=== PATIENT | male | born 1945 | race Caucasian/White ===

== ENCOUNTER 2017-12-22 09:37 | Inpatient (IN) | payer MEDICARE, BC ==
[2017-12-22 10:05] LABS: #Basophils 0.1 thou/uL (0.0-0.2); #Eosinphils 0.1 thou/uL (0.0-0.7); #Lymphocytes 1.6 thou/uL (1.20-3.40); #Monocytes 0.8 thou/uL (0.11-0.59); #Neutrophils 7.8 thou/uL (1.40-6.50); %Basophils 1.1 % (0.0-1.0); %Eosinophils 1.1 % (0.0-10.0); %Lymphocytes 15.5 % (21.0-51.0); %Monocytes 7.9 % (0.0-10.0); %Neutrophils 74.5 % (42.0-75.0); Hemoglobin 17.1 g/dL (14.0-18.0); Mean Corpuscular HGB CONC 33.8 g/dL (32.0-36.0); Mean Corpuscular Hemoglobin 31.2 pg (27.0-31.0); Mean Corpuscular Volume 92.3 fL (78.0-98.0); Mean Platelet Volume 9.5 fL (7.4-10.4); Platelet Count 257 thou/uL (130-400); RBC Distribution Width 12.2 % (11.5-14.5); Red Blood Cell (RBC) Count 5.48 mill/uL (4.70-6.10); White Blood Cell (WBC) Count 10.5 thou/uL (4.8-10.8)
--- NOTE | 2017-12-22 10:16 | RAD ---
1 VIEW CHEST: Date: 12/22/17 HISTORY: Chest tightness. Nausea. Pain. COMPARISON: 11/07/16. FINDINGS: Portable upright chest demonstrates normal cardiac silhouette. Pulmonary vessels and hilum are normal . No consolidation or mass. No pneumothorax or osseous abnormalities. IMPRESSION: No acute cardiopulmonary process. POS: [facility]
[2017-12-22] MEDS ORDERED: Nitroglycerin 0.4 MG TAB (25 Tab Bottle) ONE (10:20)
[2017-12-22 10:21] LABS: ALT (SGPT) 27 U/L (8-55); AST (SGOT) 22 U/L (5-34); Albumin 4.6 g/dL (3.4-4.8); Alkaline Phosphatase 78 U/L (40-150); Anion Gap 14 mmol/L (10-20); BUN (Urea Nitrogen) 17 mg/dL (8.4-25.7); Bilirubin, Total 1.1 mg/dL (0.2-1.2); Calc. Creatinine Clearance 0 mL/min (70-130); Carbon Dioxide 23 mmol/L (23-31); Chloride 104 mmol/L (98-107); Estimated GFR-MDRD 66; Globulin 3.1 g/dL (2.4-3.5); Glucose 123 mg/dL (83-110); Potassium 4.2 mmol/L (3.5-5.1); Protein, Total 7.7 g/dL (5.8-8.1); Sodium 137 mmol/L (136-145)
[2017-12-22 10:23] LABS: CKMB 0.7 ng/mL (0-6.6)
[2017-12-22 10:35] LABS: Troponin I Less than 0.010 ng/mL (< 0.028)
[2017-12-22] MEDS ORDERED: Nitroglycerin 0.4 MG TAB (25 Tab Bottle) PO PRN (11:36)
[2017-12-22] MEDS ORDERED: Acetaminophen 650 MG Suppository PR PRN (11:36)
[2017-12-22] MEDS ORDERED: Bisacodyl 5 MG TAB PO PRN (11:36)
[2017-12-22] MEDS ORDERED: Acetaminophen 325 MG TAB PO PRN (11:36)
--- NOTE | 2017-12-22 12:40 | HP ---
DATE OF ADMISSION: 12/12/2017 PRIMARY CARE PROVIDER: Briana Sullivan M.D. CHIEF COMPLAINT: Chest discomfort. HISTORY OF PRESENT ILLNESS: Mr. Ackerman is a pleasant 72-year-old gentleman who was seen at [facility] on 12/22/2017. His cardiac history includes cardiac catheterization in , which showed mild nonobstructive atherosclerotic heart disease. He subsequently had a nuclear stress test in 11/2016, which was normal. He was reportedly doing well until today morning. He woke up around 6:00 a.m. to go to the bathroom. At that time, he had chest tightness. He describes it as being in the retrosternal region, nonradi ating, accompanied by shortness of breath and diaphoresis. It was not accompanied by lightheadedness . He cannot recall any aggravating or relieving factors. He rates it as 3-4/10. The chest pain jeevan ntually resolved, but recurred again. That is why he came to the emergency room. REVIEW OF SYSTEMS: All other systems reviewed and found to be negative. PAST MEDICAL HISTORY: Hypertension, dyslipidemia, macular degeneration and coronary artery disease. PAST SURGICAL HISTORY: Skin cancer surgery. SOCIAL HISTORY: The patient denies tobacco use, alcohol use or recreational drug use. FAMILY HISTORY: Significant for heart valve problems in his father. CODE STATUS: I discussed his code status. He is full code. ALLERGIES: No known drug allergies. CURRENT MEDICATIONS: Amlodipine 10 mg daily, isosorbide dinitrate 30 mg daily, atorvastatin 40 mg da nyasia, losartan/hydrochlorothiazide 100/12.5 mg daily. PHYSICAL EXAMINATION: GENERAL: On examination, Mr. Ackerman is awake and alert, not in acute distress. VITAL SIGNS: Blood pressure is 162/97, pulse 97, respiratory rate 20 and oxygen saturation 94% on ro om air. He is afebrile. EYES: No scleral icterus. No conjunctival pallor. ENT: Moist mucosal membranes. No oropharyngeal erythema or exudates. NECK: Supple, nontender, trachea is midline. RESPIRATORY: Accessory muscles of breathing are not active. Chest wall movements are symmetric bila terally. LUNGS: Clear to auscultation without wheeze, rhonchi or crepitations. CARDIOVASCULAR: S1 and S2 are heard, regular. Peripheral pulses palpable. No carotid bruit, no per icardial rub. ABDOMEN: Soft, nontender, bowel sounds heard, no hepatomegaly, no splenomegaly. NEUROLOGIC: Cranial nerves II-XII intact. Deep tendon reflexes are 2+. MUSCULOSKELETAL: Power is 5/5 in all 4 extremities. SKIN: Vitiligo patches over both hands. LYMPHATIC: No cervical lymphadenopathy. PSYCHIATRIC: Normal mood, normal affect. The patient is oriented to person, place and time. LABORATORY DATA: Mr. Ackerman' labs and investigations were reviewed. I reviewed his electrocardiog denise, which shows normal sinus rhythm. No ST changes to suggest an acute coronary syndrome. I also r eviewed his chest x-ray, which does not show any pulmonary infiltrates. He has an unremarkable CBC, unremarkable comprehensive metabolic profile, normal BNP and normal troponin I. ASSESSMENT AND PLAN: Mr. Ackerman is a pleasant 72-year-old gentleman who was seen at [facility] on 12/22/2017. His problem list includes: 1. Chest pain: Etiology unclear. Given his significant risk factors, the patient will be admitted to the hospital on monitoring analyst. We will order a stress test. Further management depending on outcome of the test. 2. Hypertension: Resume the patient's home medications, monitor vital signs and titrate antihyperte nsives as needed. 3. Dyslipidemia: Continue statin. 4. Macular degeneration: The patient has no vision complaints at this time. Many thanks for allowing me to participate in your patient's care. Please feel free to contact me wi th any questions or concerns. LEVEL OF RISK: High. LEVEL OF COMPLEXITY: High.
[2017-12-22 13:40] VITALS: BMI 25.6
[2017-12-22 13:42] LABS: Troponin I Less than 0.010 ng/mL (< 0.028)
[2017-12-22 16:24] LABS: Troponin I Less than 0.010 ng/mL (< 0.028)
[2017-12-22] MEDS ORDERED: Prevnar 13-Val Conj/PF 0.5 ML SYRINGE IM ONE (21:00)
[2017-12-23 04:02] LABS: #Basophils 0.1 thou/uL (0.0-0.2); #Eosinphils 0.2 thou/uL (0.0-0.7); #Lymphocytes 1.4 thou/uL (1.20-3.40); #Monocytes 0.7 thou/uL (0.11-0.59); #Neutrophils 5.5 thou/uL (1.40-6.50); %Basophils 0.6 % (0.0-1.0); %Eosinophils 2.2 % (0.0-10.0); %Lymphocytes 18.3 % (21.0-51.0); %Monocytes 9.1 % (0.0-10.0); %Neutrophils 69.8 % (42.0-75.0); Mean Corpuscular HGB CONC 34.5 g/dL (32.0-36.0); Mean Corpuscular Hemoglobin 31.8 pg (27.0-31.0); Mean Corpuscular Volume 92.1 fL (78.0-98.0); Mean Platelet Volume 9.3 fL (7.4-10.4); Platelet Count 211 thou/uL (130-400); RBC Distribution Width 12.1 % (11.5-14.5); Red Blood Cell (RBC) Count 4.72 mill/uL (4.70-6.10); White Blood Cell (WBC) Count 7.9 thou/uL (4.8-10.8)
[2017-12-23 04:29] LABS: Anion Gap 13 mmol/L (10-20); BUN (Urea Nitrogen) 16 mg/dL (8.4-25.7); Calc. Creatinine Clearance 80 mL/min (70-130); Calcium 8.4 mg/dL (7.8-10.44); Carbon Dioxide 23 mmol/L (23-31); Chloride 108 mmol/L (98-107); Estimated GFR-MDRD 78; Glucose 97 mg/dL (83-110); Potassium 3.9 mmol/L (3.5-5.1); Sodium 140 mmol/L (136-145)
[2017-12-23] MEDS: Atorvastatin Calcium 40 MG TAB PO SCH (08:19)
[2017-12-23] MEDS: Losartan 25 MG TAB PO SCH (08:19)
[2017-12-23] MEDS: Amlodipine 10 MG TAB PO SCH (08:19)
[2017-12-23] MEDS ORDERED: Enoxaparin Sodium 40 MG/0.4 ML SYRINGE SC SCH (09:00)
[2017-12-23] MEDS ORDERED: Aspirin 325 MG TAB PO SCH (09:00)
[2017-12-23] MEDS ORDERED: Hydrochlorothiazide 25 MG TAB PO SCH (09:00)
[2017-12-23] MEDS ORDERED: Non-Formulary Item 1 EACH (Losartan/Hydrochlorothiazide [Losartan-Hctz 100-12.5 Mg Tab] 1 PO SCH (09:00)
--- NOTE | 2017-12-23 14:36 | NM ---
MYOCARDIAL PERFUSION SCAN: DATE: 12/23/17. PROVIDED CLINICAL HISTORY: Chest pain. RADIOPHARMACEUTICAL: 28 mCi Technetium 99m labeled sestamibi IV stress. 10 mCi Technetium 99m labeled sestamibi IV rest. FINDINGS: There is moderate area of prominently reduced radiotracer activity involving the basal to mid inferio r wall at stress. This demonstrates reversibility on the rest images. There is otherwise normal, ho mogeneous distribution of the radiotracer throughout the left ventricular myocardium at stress and re st. Gated data demonstrate normal myocardial wall motion and thickening with calculated LEVF of 73%. TID is 0.92 IMPRESSION: 1. Reversibility involving the basal and mid to inferior wall compatible with ischemia. 2. Preserved left ventricular ejection fraction. POS: [facility]
--- NOTE | 2017-12-23 16:17 | PDOC.PN ---
- Subjective Encounter Start Date: 12/23/17 Encounter Start Time: 16:16 Pt seen for followup re: chest pain. Denies chest pain, shortness of breath, fevers or chills. - Objective Resuscitation Status: Resuscitation Status FULL:Full Resuscitation MAR Reviewed: Yes Vital Signs & Weight: Vital Signs (12 hours) Temp Pulse Resp BP Pulse Ox 12/23/17 15:56 97.5 F L 98 18 170/81 H 94 L 12/23/17 12:34 97.9 F 98 20 138/75 94 L 12/23/17 07:29 98 F 75 17 138/71 95 Weight Weight 174 lb 3.2 oz I&O: 12/22/17 12/23/17 12/24/17 06:59 06:59 06:59 Intake Total 650 Output Total 925 Balance -275 Result Diagrams: 12/23/17 03:40 12/23/17 03:40 EKG Reviewed by me: Yes (Tele: NSR) Phys Exam - Physical Examination Constitutional: NAD HEENT: moist MMs, sclera anicteric, oral pharynx no lesions, 2+ tonsils Neck: no nodes, no JVD, supple, full ROM Respiratory: no wheezing, no rales, no rhonchi, clear to auscultation bilateral Cardiovascular: RRR, no rub S1, S2 Gastrointestinal: soft, non-tender, no distention, positive bowel sounds Neurological: moves all 4 limbs Psychiatric: normal affect, A&O x 3 Dx/Plan (1) Chest pain Code(s): R07.9 - CHEST PAIN, UNSPECIFIED Status: Acute Comment: abnormal stress test, monitor on telemetry. (2) Hypertension Code(s): I10 - ESSENTIAL (PRIMARY) HYPERTENSION Status: Chronic Comment: Monitor vital signs, titrate antihypertensives as needed (3) Dyslipidemia Code(s): E78.5 - HYPERLIPIDEMIA, UNSPECIFIED Status: Chronic Comment: continue statin (4) Macular degeneration Code(s): H35.30 - UNSPECIFIED MACULAR DEGENERATION Status: Chronic Comment: stable - Plan * . Review of Systems - Review of Systems Constitutional: negative: fever, chills, sweats, weakness, malaise Respiratory: negative: Cough, Shortness of Breath, SOB with Excertion, Pleuritic Pain, Wheezing Cardiovascular: negative: chest pain, palpitations, orthopnea, paroxysmal nocturnal dyspnea, edema, light headedness Gastrointestinal: negative: Nausea, Vomiting, Abdominal Pain, Diarrhea, Constipation, Melena, Hematochezia Genitourinary: negative: Dysuria, Frequency, Incontinence, Hematuria, Retention Skin: negative: Rash, Lesions, Ja, Bruising - Medications/Allergies Allergies/Adverse Reactions: Allergies Allergy/AdvReac Type Severity Reaction Status Date / Time No Known Drug Allergies Allergy Verified 03/22/15 17:00 Medications: Current Medications Acetaminophen (Tylenol) 650 mg PO Q4H PRN PRN Reason: Headache/Fever or Pain Acetaminophen (Tylenol) 650 mg MN Q4H PRN PRN Reason: Headache/Fever or Pain Amlodipine Besylate (Norvasc) 10 mg PO DAILY [facility] Last Admin: 12/23/17 08:19 Dose: 10 mg Aspirin (Aspirin) 325 mg PO DAILY [facility] Last Admin: 12/23/17 08:19 Dose: 325 mg Atorvastatin Calcium (Lipitor) 40 mg PO DAILY [facility] Last Admin: 12/23/17 08:19 Dose: 40 mg Bisacodyl (Dulcolax) 10 mg PO DAILYPRN PRN PRN Reason: Constipation Enoxaparin Sodium (Lovenox) 40 mg SC 0900 [facility] Last Admin: 12/23/17 08:20 Dose: 40 mg Hydrochlorothiazide (Hydrochlorothiazide) 12.5 mg PO DAILY [facility] Last Admin: 12/23/17 08:18 Dose: 12.5 mg Losartan Potassium (Cozaar) 100 mg PO DAILY [facility] Last Admin: 12/23/17 08:19 Dose: 100 mg Nitroglycerin (Nitrostat) 0.4 mg PO Q5MIN PRN PRN Reason: Chest Pain
[2017-12-23] MEDS ORDERED: Clopidogrel Bisulfate 300 MG TAB PO SCH (17:00)
[2017-12-23] MEDS ORDERED: Communication Order-Pharmacy FS SCH (17:00)
[2017-12-24] MEDS: Amlodipine 10 MG TAB PO SCH (05:54)
[2017-12-24] MEDS: Atorvastatin Calcium 40 MG TAB PO SCH (05:54)
--- NOTE | 2017-12-24 07:40 | CON ---
DATE OF CONSULTATION: 12/23/2017 HISTORY OF PRESENT ILLNESS: The patient is a 72-year-old gentleman who presents with recurrent chest discomfort. The patient was seen in 03/2015 with chest pain. He underwent a cardiac catheterization. He was found to have mild coronary artery disease and placed on medical therapy. He was readmitted in November of 2016, he underwent a cardiac evaluation including a Cardiolite stress test which revealed no evidence of ischemia. The patient represented yesterday with substernal chest discomfort. He was recently taken off Plavix and had adjustment of his cardiac medications. He presented with midsternal chest pain that was associated with diaphoresis and discomfort radiating into both arms. The patient came to the emergency room for further evaluation. The patient denies having present chest discomfort. PAST MEDICAL HISTORY: 1. Coronary artery disease. 2. Hypertension. 3. Dyslipidemia. PAST SURGICAL: Skin cancer surgery. SOCIAL HISTORY: Nonsmoker. FAMILY HISTORY: Positive family history of coronary artery disease. ALLERGIES: None. MEDICATION ON ADMISSION: Isosorbide dinitrate 30 daily, Lipitor 40 at bedtime, Norvasc 10 daily, losartan/HCTZ 112.5 daily. REVIEW OF SYSTEMS Ten-point system otherwise unremarkable. No history of easy bruising or bleeding. PHYSICAL EXAMINATION: GENERAL: This is an elderly gentleman in no acute distress. VITAL SIGNS: Blood pressure is 170/81. NECK: No jugular distention, no carotid bruits. LUNGS: Clear to auscultation. HEART: Regular rate and rhythm, normal S1, S2. ABDOMEN: Distended. EXTREMITIES: Showed no edema. SKIN: Warm and dry. NEUROLOGIC: Nonfocal. VASCULAR: Radial pulses 2+. LABORATORY: White blood count 7.9, hemoglobin 15.0, hematocrit 43.5, platelets 211. Sodium was 140, potassium 3.9, chloride 108, bicarbonate 23, BUN 16, creatinine 0.95. Troponin less than 0.01. BNP 50.9. EKG revealed normal sinus rhythm with a nonspecific ST abnormality. Cardiolite stress test revealed normal left ventricular ejection fraction of 73%. There was ischemia of the inferior wall. IMPRESSION: 1. Unstable angina. 2. History of mild coronary artery disease. 3. Dyslipidemia. 4. Hypertension. This gentleman presents with unstable angina. There was evidence of ischemia on a stress test. We will restart the patient on Plavix. We will also add nitrate therapy. We will also place the patient back on Imdur. Further recommendations will follow. MTDD
[2017-12-24] MEDS ORDERED: Diazepam 5 MG TAB PO SCH (08:15)
[2017-12-24] MEDS ORDERED: Sodium Chloride 0.9% 1,000 ML IV SCH (08:15)
[2017-12-24] MEDS ORDERED: Iopamidol 370 76% 100 ML VIAL ONE (08:25)
--- NOTE | 2017-12-24 08:29 | PRG ---
DATE OF SERVICE: 12/24/2017 Mr. Ackerman is doing well today. He has no chest pain or pressure now. I have reviewed the situation. The patient did have an episod e of what sounds like anginal chest pain, relieved with nitroglycerin on 12/22/2017. He did undergo cardiac catheterization in 2014, which showed no obstructive stenosis. The stress test was interpret ed as some inferior ischemia. I discussed the options based on the abnormal stress test, reasonable to proceed to repeat cardiac ca theterization. The troponin levels, however, have all been normal and the EKGs have all been normal. I discussed risk of catheterization, stroke, heart attack, iodine allergy, loss of blood supply to leg or kidney, stent thrombosis, stent restenosis. He understands and wishes to proceed.
[2017-12-24] MEDS: Losartan 25 MG TAB PO SCH (08:38)
[2017-12-24] MEDS ORDERED: Clopidogrel Bisulfate 75 MG TAB PO SCH (09:00)
[2017-12-24] MEDS ORDERED: Heparin 0 ML ONE (10:12)
[2017-12-24] MEDS ORDERED: Lidocaine 1% (PF) 30 ML VIAL ONE ×2 (10:12→11:30)
[2017-12-24] MEDS ORDERED: Fentanyl 100 MCG/2 ML VIAL ONE (12:03)
[2017-12-24] MEDS ORDERED: Midazolam HCl 2 mg/2 ml Vial ONE (12:03)
[2017-12-24] MEDS ORDERED: Nitroglycerin 100MG/250ML BOT 0 ML ONE (12:07)
[2017-12-24] MEDS ORDERED: Nitroglycerin 4.9 GM Bottle ONE (12:07)
[2017-12-24] MEDS ORDERED: traMADol HCl 50 MG TAB PO PRN (12:42)
[2017-12-24] MEDS ORDERED: Nitroglycerin 0.4 MG TAB (25 Tab Bottle) SL PRN (12:42)
[2017-12-24] MEDS ORDERED: Acetaminophen/Codeine 30-300mg Tablet PO PRN ×2 (12:42)
[2017-12-24] MEDS ORDERED: Sodium Chloride 0.9% 200 ML IV PRN (12:45)
[2017-12-24] MEDS ORDERED: Nitroglycerin 4.9 GM Bottle SL PRN (13:10)
[2017-12-24 15:55] VITALS: BP 123/66; TEMP 97.8
--- NOTE | 2017-12-25 02:12 | DIS ---
DATE OF ADMISSION: 12/22/2017 DATE OF DISCHARGE: 12/24/2017 PRIMARY CARE PHYSICIAN: Briana Sullivan MD DISCHARGE DIAGNOSES: 1. Chest pain. 2. Probable angina. 3. Abnormal stress test. CONDITION OF PATIENT ON THE DAY OF DISCHARGE: Stable. I assessed Mr. Ackerman on the day of dischar . He denies any chest pain or shortness of breath at this time. Vital signs are stable. S1 and S 2 are heard, regular. Lungs are clear to auscultation bilaterally. DISCHARGE MEDICATIONS: In addition to the home medications as dictated on my history and physical no te dated 12/22/2017, he is being discharged on aspirin 81 mg daily, Plavix 75 mg daily, and nitroglyc jose angel spray p.r.n. CONSULTATIONS DURING THIS HOSPITALIZATION: Cardiology, Dr. Montesinos. HOSPITAL COURSE: Mr. Ackerman is a pleasant 72-year-old gentleman who was admitted to [facility] on 12/22/2017 for chest pain. Please refer to my history and physical note dated 12/22/2017 for further details. He underwent nuclear stress test, which showed reversibility involv ing the basal and [id number] wall compatible with ischemia. He was seen by Cardiology Service. He went on to have cardiac catheterization on 12/24/2017, which did not show any flow-limiting coron cory artery disease. Left ventricular ejection fraction was 60%. He had normal wall motion. LAD foreign dge noted, not hemodynamically significant, 30% ramus block, and 10% RCA. Cardiology service recomme nds medical therapy. He is being discharged home in a stable condition. Many thanks for allowing me to participate in the patient's care. Please feel free to contact me wit h any questions or concerns. DISCHARGE DESTINATION: Home. TOTAL AMOUNT OF TIME SPENT COORDINATING THIS DISCHARGE: 31 minutes.
[2017-12-25] MEDS ORDERED: Hydrochlorothiazide 25 MG TAB PO SCH (09:00)
--- NOTE | 2017-12-29 11:18 | EKG ---
Test Reason : CHEST TIGHTNESS Blood Pressure : / mmHG Vent. Rate : 092 BPM Atrial Rate : 092 BPM P-R Int : 150 ms QRS Dur : 086 ms QT Int : 366 ms P-R-T Axes : 066 050 078 degrees QTc Int : 452 ms Normal sinus rhythm Possible Left atrial enlargement Nonspecific ST and T wave abnormality Abnormal ECG Confirmed by ZABRINA NORTON M.D. ([id number]), newspaper copy editor LARRY COLUNGA ([id number]) on 12/29/2017 11:18:20 AM Referred By: Confirmed By:ZABRINA NORTON M.D.
== END 2017-12-24 18:09 | disposition home or self-care (01) | DRG 303 ==
LOC: ERS 09:37 → 2SW 11:07 → OBSVTOIN 12-23 17:03
PROVIDERS: ADMIT Internal Medicine; ATTEND Internal Medicine
DX: I25.110 Atherosclerotic heart disease of native coronary artery with unstable angina pectoris (principal); I10 Essential (primary) hypertension; E78.5 Hyperlipidemia, unspecified; Z85.828 Personal history of other malignant neoplasm of skin; H35.30 Unspecified macular degeneration
CPT/HCPCS: 36415; 71045; 76942; 78452; 80048; 80053; 82553; 83880; 84484; 85025; 93005; 93017; 93458; 94760; 96360; 99152; A9500; C1769; J1644; J1650; J2001; J2250; J3010

== ENCOUNTER 2018-08-13 15:18 | Outpatient (CLI) | payer MEDICARE, BC ==
--- NOTE | 2018-08-13 15:27 | RAD ---
XR Chest Pa Lat @ [facility] HISTORY: Dyspnea COMPARISON: 10/23/2017 study. FINDINGS: Heart size and mediastinum are within normal limits. The lungs are clear of infiltrates. No significant bony findings. IMPRESSION: No active intrathoracic disease.
== END 2018-08-13 15:19 | disposition home or self-care (01) ==
LOC: RAD 15:18
PROVIDERS: ATTEND Internal Medicine Pulmonary Disease
DX: R06.00 Dyspnea, unspecified (principal)
CPT/HCPCS: 71046

== ENCOUNTER 2020-01-27 08:49 | Outpatient (CLI) | payer MEDICARE, BC ==
[2020-01-27] MEDS ORDERED: Magnevist 469MG/ML 20 ML VIAL ONE (09:08)
--- NOTE | 2020-01-27 11:41 | MRI ---
EXAM: MRI of the pelvis/prostate without and with contrast HISTORY: elevated PSA COMPARISON: None TECHNIQUE: Multiplanar multisequence MR images were obtained of the pelvis without and with IV contra st. Evaluation of this exam was performed with a [employer] workstation. FINDINGS: Central gland: Moderate hypertrophy of the central gland consistent with BPH. Prostate volume is matias mated at 37 mL. No suspicious low T2 signal lesion is seen. Peripheral zone: No restricted diffusion is seen. No low signal on ADC map. Seminal vesicles: Intact without abnormality Neurovascular bundles: Intact Pelvic lymph nodes: No pelvic adenopathy Other visualized intrapelvic structures: Unremarkable Osseous structures: No marrow signal abnormality IMPRESSION: PI-RADS Category 2-low likelihood that a clinically significant cancer is present.
== END 2020-01-27 08:50 | disposition home or self-care (01) ==
LOC: TBSIIMAG 08:49
PROVIDERS: ATTEND Urology
DX: R97.20 Elevated prostate specific antigen [PSA] (principal)
CPT/HCPCS: 72197; 82565; A9579

== ENCOUNTER 2020-03-08 18:04 | Emergency (ER) | payer MEDICARE, BC ==
[2020-03-08] MEDS ORDERED: Boostrix 0.5 ML (Tdap) VIAL ONE (18:22)
== END 2020-03-08 19:00 | disposition home or self-care (01) ==
LOC: ERS 18:04
DX: S41.111A Laceration without foreign body of right upper arm, initial encounter (principal); I10 Essential (primary) hypertension; E78.00 Pure hypercholesterolemia, unspecified; Z79.899 Other long term (current) drug therapy; Z79.82 Long term (current) use of aspirin; F17.220 Nicotine dependence, chewing tobacco, uncomplicated; W26.9XXA Contact with unspecified sharp object(s), initial encounter
CPT/HCPCS: 90471; 90715

== ENCOUNTER 2025-02-09 08:17 | Inpatient (IN) | payer MEDICARE, BC ==
[2025-02-09 09:00] VITALS: BMI 25.8
[2025-02-09 10:40] LABS: #Basophils 0.03 10x3/uL (0.0-0.2); #Eosinophils 0.14 10x3/uL (0.0-0.7); #Monocytes 0.85 10x3/uL (0.11-0.59); #Neutrophils 5.66 10x3/uL (1.40-6.50); %Basophils 0.4 % (0.0-1.0); %Eosinophils 1.7 % (0.0-10.0); %Lymphocytes 20.5 % (21.0-51.0); %Monocytes 10.1 % (0.0-10.0); %Neutrophils 66.9 % (42.0-75.0); Hematocrit 45.5 % (42.0-52.0); Hemoglobin 14.5 g/dL (14.0-18.0); Mean Corpuscular Hemoglobin 26.8 pg (27.0-31.0); Mean Corpuscular Volume 84.1 fL (78.0-98.0); Platelet Count 238 10x3/uL (130-400); Red Blood Cell (RBC) Count 5.41 mill/uL (4.70-6.10); White Blood Cell (WBC) Count 8.44 10x3/uL (4.8-10.8)
[2025-02-09 10:54] LABS: INR-International Normal Ratio 2.7; Prothrombin Time 29.1 sec (12.0-14.7)
[2025-02-09 10:55] LABS: PTT 37.1 sec (22.9-36.1)
[2025-02-09 11:02] LABS: ALT (SGPT) 30 U/L (Less than 45); AST (SGOT) 36 U/L (11-34); Albumin 4.5 g/dL (3.1-4.5); Alkaline Phosphatase 69 U/L (40-110); Anion Gap 14 mmol/L (10-20); BUN (Urea Nitrogen) 16 mg/dL (8.4-25.7); Bilirubin, Total 0.7 mg/dL (0.3-1.2); Calc. Creatinine Clearance 0 mL/min (70-130); Calcium 9.0 mg/dL (7.8-10.44); Carbon Dioxide 27 mmol/L (23-31); Chloride 105 mmol/L (98-107); Globulin 2.8 g/dL (2.4-3.5); Glucose 112 mg/dL (83-110); Potassium 4.4 mmol/L (3.5-5.1); Sodium 142 mmol/L (136-145)
[2025-02-11] MEDS ORDERED: CEFAZOLIN 2 GM VIAL ONE (06:39)
[2025-02-11] MEDS ORDERED: Heparin 10,000 UNITS/ 10 ML VIAL ONE (06:39)
[2025-02-11] MEDS ORDERED: Ondansetron PF 4 MG/2 ML Vial ONE (07:21)
[2025-02-11] MEDS ORDERED: Glycopyrrolate 0.2 MG/ML 5 ML SYRINGE ONE (07:22)
[2025-02-11] MEDS ORDERED: Rocuronium Bromide 10 MG/ML (10ML VIAL) ONE (07:22)
[2025-02-11] MEDS ORDERED: PHENYLEPHRINE-NS 100 MCG/ML 10 ML SYRINGE ONE (07:22)
[2025-02-11] MEDS ORDERED: Lidocaine 1% (PF) 30 ML VIAL ONE (07:22)
[2025-02-11] MEDS ORDERED: PROPOFOL 200 MG/20 ML VIAL ONE (07:40)
[2025-02-11] MEDS ORDERED: SUGAMMADEX SODIUM 200 MG/2 ML VIAL ONE (08:00)
[2025-02-11] MEDS ORDERED: Iopamidol 370 76% 100 ML VIAL ONE (09:16)
== END 2025-02-11 14:25 | disposition home or self-care (01) | DRG 274 ==
LOC: SURG A 08:17 → UNDOADMIN 08:17 → SURG A 02-11 06:20
PROVIDERS: ADMIT Internal Medicine Cardiovascular Disease; ATTEND Internal Medicine Cardiovascular Disease
PROC: 02L73DK Occlusion of Left Atrial Appendage with Intraluminal Device, Percutaneous Approach (ICD-10-PCS; principal; 2025-02-11)
PROC: 3E03329 Introduction of Other Anti-infective into Peripheral Vein, Percutaneous Approach (ICD-10-PCS; 2025-02-11)
DX: I48.0 Paroxysmal atrial fibrillation (principal); Z00.6 Encounter for examination for normal comparison and control in clinical research program; I10 Essential (primary) hypertension; E78.5 Hyperlipidemia, unspecified; Z87.891 Personal history of nicotine dependence; Z79.01 Long term (current) use of anticoagulants; Z79.899 Other long term (current) drug therapy
CPT/HCPCS: 33340; 80053; 85025; 85347; 85610; 85730; 86850; 86900; 86901; 93005; 93010; 93306; 93312; C1753; C1760; C1893; C1894; J1100; J1644; J2003; J2405; J2704; J2720; J3010; Q9967

== ENCOUNTER 2025-02-09 08:25 | Outpatient (CLI) | payer MEDICARE, BC | END 2025-02-09 08:26 | disposition home or self-care (01) | LOC: LABBT 08:25 | PROVIDERS: ATTEND Internal Medicine Cardiovascular Disease | DX: Z01.810 Encounter for preprocedural cardiovascular examination (principal); I48.0 Paroxysmal atrial fibrillation; Z91.81 History of falling | CPT/HCPCS: 93005; 93010 ==

== ENCOUNTER 2025-04-07 10:59 | Outpatient (CLI) | payer MEDICARE, BC ==
[2025-04-07 12:03] LABS: #Basophils 0.04 10x3/uL (0.0-0.2); #Eosinophils 0.07 10x3/uL (0.0-0.7); #Monocytes 1.02 10x3/uL (0.11-0.59); #Neutrophils 6.47 10x3/uL (1.40-6.50); %Basophils 0.4 % (0.0-1.0); %Eosinophils 0.8 % (0.0-10.0); %Lymphocytes 17.5 % (21.0-51.0); %Monocytes 11.0 % (0.0-10.0); %Neutrophils 69.8 % (42.0-75.0); Hematocrit 44.4 % (42.0-52.0); Hemoglobin 14.5 g/dL (14.0-18.0); Mean Corpuscular Hemoglobin 26.9 pg (27.0-31.0); Mean Corpuscular Volume 82.4 fL (78.0-98.0); Platelet Count 284 10x3/uL (130-400); Red Blood Cell (RBC) Count 5.39 mill/uL (4.70-6.10); White Blood Cell (WBC) Count 9.27 10x3/uL (4.8-10.8)
[2025-04-07 12:20] LABS: Anion Gap 14 mmol/L (10-20); BUN (Urea Nitrogen) 10 mg/dL (8.4-25.7); Calc. Creatinine Clearance 0 mL/min (70-130); Calcium 8.7 mg/dL (7.8-10.44); Carbon Dioxide 26 mmol/L (23-31); Chloride 97 mmol/L (98-107); Glucose 109 mg/dL (83-110); Potassium 4.0 mmol/L (3.5-5.1); Sodium 133 mmol/L (136-145)
[2025-04-07 12:21] LABS: INR-International Normal Ratio 1.1; Prothrombin Time 14.2 sec (12.0-14.7)
[2025-04-07 12:22] LABS: PTT 33.6 sec (22.9-36.1)
== END 2025-04-07 11:00 | disposition home or self-care (01) ==
LOC: LABBT 10:59
PROVIDERS: ATTEND Internal Medicine Cardiovascular Disease
DX: Z01.812 Encounter for preprocedural laboratory examination (principal); I48.0 Paroxysmal atrial fibrillation
CPT/HCPCS: 80048; 85025; 85610; 85730